=== PATIENT | female | born 1990 | race American Indian/Alaskan Native ===

== ENCOUNTER 2017-03-08 10:20 | Emergency (ER) | payer BC, OTHER ==
[2017-03-08 10:45] VITALS: BMI 46.8
[2017-03-08 10:48] VITALS: RESP 18; TEMP 98.2
[2017-03-08] MEDS ORDERED: Naproxen 550 mg Tab PO STA (11:35)
[2017-03-08] MEDS ORDERED: Naproxen 550 mg Tab PO ONE (11:39)
--- NOTE | 2017-03-08 12:45 | C.PDOC ---
History Of Present Illness 27-year-old female, presents to the emergency department with complaints of left -knee pain that started yesterday, after she went to the gym. Patient states she did some light cardio, and has been experiencing the pain since. She did not try anything at home to help relieve pain. Denies any numbness/weakness, direct trauma, or any other associated symptoms. No other complaints at this time. Time Seen by Provider: 03/08/17 11:04 Chief Complaint (Nursing): Lower Extremity Problem/Injury History Per: Patient History/Exam Limitations: no limitations Onset/Duration Of Symptoms: Hrs Current Symptoms Are (Timing): Still Present Severity: Mild Past Medical History Reviewed: Historical Data, Nursing Documentation, Vital Signs Vital Signs: Last Vital Signs Temp 98.2 F 03/08/17 10:25 Pulse 75 03/08/17 13:06 Resp 18 03/08/17 13:06 BP 128/81 03/08/17 13:06 Pulse Ox 98 03/08/17 13:06 - [facility] Procedures APPLICATION OF SPLINT (03/25/14) Family History: States: No Known Family Hx - Social History Hx Tobacco Use: No Hx Alcohol Use: No Hx Substance Use: No - Immunization History Hx Tetanus Toxoid Vaccination: No Hx Influenza Vaccination: No Hx Pneumococcal Vaccination: No Review Of Systems Constitutional: Negative for: Fever Musculoskeletal: Positive for: Other (Knee pain) Skin: Negative for: Rash Neurological: Negative for: Weakness, Numbness Physical Exam - Physical Exam Appears: Non-toxic, No Acute Distress Skin: Warm, Dry, No Rash Neck: Normal ROM Extremity: Normal ROM, No Tenderness, No Pedal Edema, No Deformity, No Swelling Neurological/Psych: Oriented x3, Normal Speech ED Course And Treatment O2 Sat by Pulse Oximetry: 100 (on RA) Pulse Ox Interpretation: Normal - Other Rad XR KNEE X-Ray: Viewed By Me, Read By Radiologist (Arthritic changes. No fracture) Progress Note: XR L knee and Naproxen ordered and reviewed. Patients XR is negative. She will be discharged home w/ jacob bandage applied by RN. All questions answered. Disposition - Disposition Referrals: [facility] at [facility] [Outside] Arnie Gutierrez III, MD [Staff Provider] - Disposition: HOME/ ROUTINE Disposition Time: 12:50 Condition: STABLE Additional Instructions: FOLLOW UP WITH YOUR DOCTOR IN 1-2 DAYS FOLLOW UP WITH ORTHOPEDICS WITHIN 1 WEEK USE MEDICATIONS DIRECTED RETURN TO EMERGENCY ROOM IF SYMPTOMS WORSEN Prescriptions: Naproxen [Naprosyn] 1 tab PO BID PRN #25 tab PRN Reason: Pain Instructions: Knee Pain (ED), Arthralgia (ED) Forms: [facility] (Serbian), Work Excuse Print Language: KINYARWANDA - Clinical Impression Clinical Impression: Left knee pain - Scribe Statement The provider has reviewed the documentation as recorded by the Scribe (Olamide Christine) All medical record entries made by the Scribe were at my direction and personally dictated by me. I have reviewed the chart and agree that the record accurately reflects my personal performance of the history, physical exam, medical decision making, and the department course for this patient. I have also personally directed, reviewed, and agree with the discharge instructions and disposition.
--- NOTE | 2017-03-08 12:48 | C.PDOC ---
Time Seen by Provider: 03/08/17 11:04 Chief Complaint (Nursing): Lower Extremity Problem/Injury Past Medical History Vital Signs: Last Vital Signs Temp 98.2 F 03/08/17 10:25 Pulse 79 03/08/17 10:25 Resp 18 03/08/17 10:25 BP 126/82 03/08/17 10:25 Pulse Ox 100 03/08/17 10:25 - [facility] Procedures APPLICATION OF SPLINT (03/25/14) Family History: States: Unknown Family Hx - Social History Hx Tobacco Use: No Hx Alcohol Use: No Hx Substance Use: No - Immunization History Hx Tetanus Toxoid Vaccination: No Hx Influenza Vaccination: No Hx Pneumococcal Vaccination: No ED Course And Treatment O2 Sat by Pulse Oximetry: 100 Disposition Counseled Patient/Family Regarding: Diagnosis, Need For Followup, Rx Given - Disposition Referrals: [facility] at [facility] [Outside] Arnie Gutierrez III, MD [Staff Provider] - Disposition: HOME/ ROUTINE Disposition Time: 12:50 Condition: STABLE Additional Instructions: FOLLOW UP WITH YOUR DOCTOR IN 1-2 DAYS FOLLOW UP WITH ORTHOPEDICS WITHIN 1 WEEK USE MEDICATIONS DIRECTED RETURN TO EMERGENCY ROOM IF SYMPTOMS WORSEN Prescriptions: Naproxen [Naprosyn] 1 tab PO BID PRN #25 tab PRN Reason: Pain Instructions: Arthralgia (ED), Knee Pain (ED) Print Language: CITIZEN OF [place] - POA Present On Arrival: None - Clinical Impression Clinical Impression: Left knee pain
[2017-03-08 13:07] VITALS: BP 128/81; PULSE 75
--- NOTE | 2017-03-08 13:11 | RAD ---
PROCEDURE: Left Knee Radiographs. HISTORY: Pain. COMPARISON: None. FINDINGS: BONES: No fracture. Mild medial and lateral tibial spine spurring. Anterior superior patellar spurring - blending quadriceps insertional enthesophyte JOINTS: Probable mild medial femoral tibial joint space narrowing -early arthrosis probable -27-year-old female JOINT EFFUSION: None. OTHER FINDINGS: Large body habitus IMPRESSION: No fracture. Earlier arthrosis change
[2017-03-08 18:58] VITALS: O2SAT 100
== END 2017-03-08 13:07 | disposition home or self-care (01) ==
LOC: C.ER 10:20
DX: M25.562 Pain in left knee (principal)